=== PATIENT | female | born 1950 | race Hispanic/Latino ===

== ENCOUNTER → 2022-04-03 | Outpatient (CLI) | payer OTHER | END | disposition home or self-care (01) | LOC: RAH 09:18 | PROVIDERS: ATTEND Internal Medicine Gastroenterology | DX: K76.89 Other specified diseases of liver (principal); R10.10 Upper abdominal pain, unspecified; R94.5 Abnormal results of liver function studies; Z90.49 Acquired absence of other specified parts of digestive tract | CPT/HCPCS: 76700 ==

== ENCOUNTER → 2024-04-24 | Outpatient (CLI) | payer OTHER | END | disposition home or self-care (01) | LOC: RAH 07:47 | PROVIDERS: ATTEND Nurse Practitioner Family | DX: R11.0 Nausea (principal); Z90.49 Acquired absence of other specified parts of digestive tract | CPT/HCPCS: 76700 ==

== ENCOUNTER → 2024-08-22 | Outpatient (CLI) | payer OTHER | END | disposition home or self-care (01) | LOC: RAH 10:44 | PROVIDERS: ATTEND Internal Medicine | DX: R42 Dizziness and giddiness (principal); G45.9 Transient cerebral ischemic attack, unspecified; Z86.73 Personal history of transient ischemic attack (TIA), and cerebral infarction without residual deficits | CPT/HCPCS: 93880 ==

== ENCOUNTER → 2025-01-07 | Outpatient (CLI) | payer OTHER ==
--- NOTE | 2025-01-07 12:55 | HMCIMG ---
CT HEAD/BRAIN W/O CONTRAST HISTORY: Headaches COMPARISON: None TECHNIQUE: Multiple sequential axial images of the head were obtained from the base of the skull through vertex. Patient was not given contrast through intravenous route. FINDINGS: The ventricles and extraventricular CSF spaces are dilated consistent with cerebral atrophy. Nonspecific white matter changes seen. There is no midline shift, mass effect or herniation. No acute intracranial bleed is seen. Visualized portion of the paranasal sinuses are grossly within normal limits. IMPRESSION: 1. No acute intracranial bleed is seen. 2. Atrophy with white matter changes. CT was performed with one or more following dose reduction techniques: automated exposure control, adjustment of the mA and kv according to patient's size, or use of a iterative reconstruction technique.
--- NOTE | 2025-01-07 13:17 | HMCIMG ---
US CAROTID DUPLEX HISTORY: Headaches COMPARISON: 05/22/2024 TECHNIQUE: Duplex carotid arterial Doppler ultrasound study was performed. FINDINGS: The common, internal and external carotid arteries are visualized. The peak systolic velocities of right common carotid artery is 51 centimeters per second, right internal carotid artery is 68 centimeters per second, right external carotid artery is 58 centimeters per second, and right vertebral artery is 30 centimeters per second. Right internal carotid artery to right common carotid artery ratio is 1.3. Right vertebral artery is seen with antegrade flow. The peak systolic velocities of left common carotid artery is 58 centimeters per second, left internal carotid artery is 99 centimeters per second, left external carotid artery is 81 centimeters per second, and left vertebral artery is 72 centimeters per second. Left internal carotid artery to left common carotid artery ratio is 1.7. Left vertebral artery is seen with antegrade flow. There are bilateral echogenic plaques. IMPRESSION: 1. No hemodynamically significant lesion is seen of either extracranial carotid artery system.
== END | disposition home or self-care (01) ==
LOC: RAH 11:39
PROVIDERS: ATTEND Internal Medicine
DX: G31.89 Other specified degenerative diseases of nervous system (principal); R51.9 Headache, unspecified; I65.23 Occlusion and stenosis of bilateral carotid arteries; R42 Dizziness and giddiness; Z86.73 Personal history of transient ischemic attack (TIA), and cerebral infarction without residual deficits
CPT/HCPCS: 70450; 93880